=== PATIENT | male | born 1960 | race Caucasian/White ===

== ENCOUNTER → 2017-11-12 | Day surgery (SDC) | payer MEDICARE, SELFPAY ==
[~2017-11-12] MED LIST: Lidocaine 2% Viscous Solution 15 ML Cup ONE; Lidocaine 4% Top Soln 50 ML Bottle ONE; Lidocaine 4% Top Soln LTA 4 ML SYRINGE ONE; Midazolam 1 MG/ML 2 ML SDV ONE; Propofol 200 MG/20 ML SDV ONE; Sodium Chloride 0.9% 1,000 ML IV SCH; fentaNYL 100 MCG/2 ML SDV ONE
[2017-11-12 10:37] VITALS: BP 102/69
--- NOTE | 2017-11-13 09:31 | OR ---
DATE OF PROCEDURE: 11/12/2017 PROCEDURE: Bronchoscopy. INDICATIONS: A pleasant gentleman who had a CT scan, on which there was either mass versus mucus noted in the trachea. COMPLICATIONS: None. ASSISTANTS: None. FINDINGS: Mucous in trachea. 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 ANESTHESIA: MAC/local/topical. PROCEDURE IN DETAIL: The patient was placed in supine position. Anesthesia used the classic lidocaine technique to anesthetize the tract. The bronchoscope was then introduced and advanced. In the trachea, near the division between left and right, the area was encountered. This was noted to be mucus. This was completely suctioned and removed. No masses underlying and no inflammation or abnormalities. Left and right lungs; including left upper and lower; right upper, lower and middle; were also evaluated. There were no noted masses or areas of concerns. The patient had some difficulties with anesthesia; therefore, the procedure was terminated at that time. No other abnormalities were noted. The patient tolerated the procedure well. Mendez Schafer MD /[id number]
== END ==
LOC: JP.SDS 06:51
PROVIDERS: ATTEND Surgery
DX: J39.8 Other specified diseases of upper respiratory tract (principal); F32.9 Major depressive disorder, single episode, unspecified; G89.29 Other chronic pain; M54.2 Cervicalgia; Z87.19 Personal history of other diseases of the digestive system; Z88.0 Allergy status to penicillin
CPT/HCPCS: 31622; A9270; J2250; J2704; J3010; J7040; J7030

== ENCOUNTER 2020-03-20 11:12 | Emergency (ER) | payer MEDICARE ==
[2020-03-20 11:27] VITALS: BP 129/90; PULSE 74
--- NOTE | 2020-03-20 12:08 | EDM.PDOC ---
ED HPI GENERAL MEDICAL PROBLEM - General Chief Complaint: Back Pain or Injury Stated Complaint: BACK PAIN Time Seen by Provider: 03/20/20 12:08 Source of Information: Reports: Patient - History of Present Illness INITIAL COMMENTS - FREE TEXT/NARRATIVE: Patient present to [facility] for back pain concerns. Pain has been present for 12 hours. Pain is located lumbar spine and began yesterday after moving lawn on riding lawn planting material remover. Pain is associated with work or physical activity. Patient believes the pain not employer/work related. Pain is described as deep ache with slight numbness localized to lower back. Pain worsened with movement and relieved by decreased use and finding a comfortable position. Patient has noted difficulty with walking and moving secondary to pain, he was unable to get up off the riding lawn planting material remover yesterday without assistance. Patient denies loss of bowel or bladder function. Patient has had similar symptoms in the past , about 20 years. Patient does have a history of back injury 20 years ago. Patient does have a history of back surgery. Patient took 2 Vicodin/Hydrocodone around 4-5 am without any improvement of symptoms. Patient is on routine Gabapentin 300mg for bilateral lower leg neuropathy, which is unchanged at this time per patient. Patient states muscle relaxant medication given him an upset stomach and vomit. Patient was brought to ER by female significant other and his a safe ride home after visit. Back Pain Score (Numeric/FACES): 10 - Related Data Allergies Allergy/AdvReac Type Severity Reaction Status Date / Time Penicillins Allergy Rash Verified 03/20/20 11:26 Home Meds: Home Meds Hydrocodone/Acetaminophen [Hydrocodon-Acetaminophen 5-325] 1 each PO Q4HR PRN [History] traZODone HCl [Trazodone HCl] 100 mg PO DAILY 01/26/15 [History] Amitriptyline [Elavil] 1 - 2 tab PO BEDTIME PRN 11/11/17 [History] Gabapentin [Neurontin] 300 mg PO BID 11/11/17 [History] Acetaminophen/oxyCODONE [Percocet 325-5 MG] 1 - 2 each PO Q6H PRN 5 Days #6 tab 03/20/20 [Rx] Lidocaine 5% [Lidoderm 5%] 700 mg TRDERM DAILY PRN 15 Days #15 patch 03/20/20 [ Rx] Naproxen Sodium [Naproxen Sodium ER] 500 mg PO BID PRN 10 Days #30 tablet.er [Rx] Past Medical History HEENT History: Reports: Sinusitis Respiratory History: Reports: Bronchitis, Recurrent Musculoskeletal History: Reports: Arthritis, Back Pain, Chronic, Fracture Other Musculoskeletal History: significant back surgery, scars noted along left lateral chest, midline lower thoracic upper lumbar and right posterior pelvis Neurological History: Reports: None Psychiatric History: Reports: Depression Hematologic History: Reports: Blood Transfusion(s) - Infectious Disease History Infectious Disease History: Reports: Chicken Pox, Measles, Mumps - Past Surgical History HEENT Surgical History: Reports: Naso-Sinus Surgery Respiratory Surgical History: Reports: None Neurological Surgical History: Reports: None, Discectomy, Spinal Fusion, Thoracic Spine Musculoskeletal Surgical History: Reports: Shoulder Surgery Social & Family History - Tobacco Use Smoking Status *Q: Current Every Day Smoker Years of Tobacco use: 40 Packs/Tins Daily: 0.2 - Caffeine Use Caffeine Use: Reports: Coffee ED ROS GENERAL - Review of Systems Review Of Systems: Comprehensive ROS is negative, except as noted in HPI. ED EXAM,LOWER BACK PAIN/INJURY - Physical Exam Exam: See Below Exam Limited By: No Limitations General Appearance: Alert, WD/WN, Mild Distress (due to back pain, lying on his right side. Guarded gait using a cane) Eye Exam: Bilateral Eye: EOMI, Normal Inspection Ears: Hearing Grossly Normal Nose: Normal Inspection Throat/Mouth: Normal Voice, No Airway Compromise Head: Atraumatic Neck: Normal Inspection, Supple Respiratory/Chest: Lungs Clear, Normal Breath Sounds, Chest Non-Tender, Other ( scar left lateral chest along costal margin) Cardiovascular: Regular Rate, Rhythm, No Edema GI/Abdominal: Normal Bowel Sounds, Soft, Non-Tender (Male) Exam: Deferred Rectal (Males) Exam: Deferred Back Exam: CVA Tenderness (R), CVA Tenderness (L), Decreased Range of Motion ( due to pain), Vertebral Tenderness (Lumbar spine), Other (scars: thoracic spine and right posterior hip) Extremities: Normal Range of Motion, No Pedal Edema Neurological: Alert, Normal Mood/Affect, Abnormal Gait (guarded) Psychiatric: Normal Affect, Normal Mood Skin Exam: Warm, Dry, Intact, Normal Color, No Rash Course - Vital Signs Last Recorded V/S: Last Vital Signs Temp 36.1 C 03/20/20 11:25 Pulse 74 03/20/20 11:25 Resp 20 03/20/20 11:25 BP 129/90 03/20/20 11:25 Pulse Ox 98 03/20/20 11:25 - Orders/Labs/Meds Orders: Active Orders 24 hr Category Date Time Status Sodium Chloride 0.9% [Saline Flush] Med 03/20/20 12:22 Active 10 ml FLUSH ASDIRECTED PRN Saline Lock Insert [OM.PC] Routine Oth 03/20/20 12:22 Ordered Medication Orders Sodium Chloride (Saline Flush) 10 ml FLUSH ASDIRECTED PRN PRN Reason: Keep Vein Open Last Admin: 03/20/20 12:43 Dose: 10 ml Meds: Medications Generic Name Dose Route Start Last Admin Trade Name Freq PRN Reason Stop Dose Admin Sodium Chloride 10 ml 03/20/20 12:22 03/20/20 12:43 Saline Flush FLUSH 10 ml ASDIRECTED PRN Administration Keep Vein Open Discontinued Medications Generic Name Dose Route Start Last Admin Trade Name Freq PRN Reason Stop Dose Admin Diazepam 2 mg 03/20/20 12:24 03/20/20 12:43 Valium PO 03/20/20 12:25 2 mg ONETIME ONE Administration Hydromorphone HCl 0.5 mg 03/20/20 12:22 03/20/20 12:30 Dilaudid IVPUSH 03/20/20 12:23 0.5 mg ONETIME ONE Administration Ketorolac Tromethamine 15 mg 03/20/20 12:22 03/20/20 12:29 Toradol IVPUSH 03/20/20 12:23 15 mg Q6H STA Administration Lidocaine 700 mg 03/20/20 12:24 03/20/20 12:43 Lidoderm 5% TOP 03/20/20 12:25 700 mg ONETIME ONE Administration - Re-Assessments/Exams Free Text/Narrative Re-Assessment/Exam: Patient's past medical history was reviewed. I visited the patient in the room where history was collected and physical examination was performed. I discussed further plan of care which included the above workup. I reviewed the physical examination findings with the patient and offered the above interventions. 03/20/20 12:43 Disposition: HOME I reevaluated the patient and discussed the results of the above workup. I discussed follow up instructions and signs and symptoms that should prompt return to the emergency department. He was feeling improved ad able to stand more upright than time of presentation Encouraged to ice, elevate, and rest. Parent/patient seem comfortable with the evaluation, treatment and follow-up plan. I was able to answer their questions. Discussed medications given during visit and at time of discharge. Encouraged close follow up with PCP. Return to an ER if symptoms worsen or new symptoms develop. Patient/Family/Friend voiced understanding and agreed to treatment plan. 03/20/20 13:13 Departure - Departure Time of Disposition: 13:14 Disposition: Home, Self-Care 01 Condition: Good Clinical Impression: Low back pain - Discharge Information *PRESCRIPTION DRUG MONITORING PROGRAM REVIEWED*: Yes *COPY OF PRESCRIPTION DRUG MONITORING REPORT IN PATIENT SENDY: No Prescriptions: Acetaminophen/oxyCODONE [Percocet 325-5 MG] 1 - 2 each PO Q6H PRN 5 Days #6 tab PRN Reason: pain Lidocaine 5% [Lidoderm 5%] 700 mg TRDERM DAILY PRN 15 Days #15 patch PRN Reason: Pain (Moderate 4-6) Naproxen Sodium [Naproxen Sodium ER] 500 mg PO BID PRN 10 Days #30 tablet.er PRN Reason: Pain Instructions: Acute Back Pain, Adult, What You Need to Know About Chronic Back Pain, Musculoskeletal Pain, Heat Therapy, How to Use Cold Therapy Referrals: Sidra Davis PA [Primary Care Provider] - Forms: ED Department Discharge Additional Instructions: 1. LIMIT LIFTING (<10 LBS/BENDING/TWISTING) X 4 WEEKS 2. TAKE ABOVE MEDICATIONS DIRECTED UNLESS RE-CHECK IN CLINIC 3. MAX NAPROXEN 500 EVERY 12 HOURS FOR PAIN AND SWELLING WITH FOOD 4. MAX TYLENOL 4000MG PER 24 HOUR PERIOD or 5. Narcotic medications for pain EVERY 6-8 HOURS FOR SEVERE PAIN as directed. Do not take Oxycodone within 6 hours of Hydrocodone 6. Muscle relaxant declined by patient. 7. Lidoderm patch 700mg every am and off at night for localized lower back pain. 8. ICE 15-20MIN 5-7 TIMES PER DAY X 48 HOUR THEN ALTERNATE WITH HEAT 15-20 MIN 3 -4 TIMES PER DAY BASED ON COMFORT. 9. UPDATE PRIMARY CARE PROVIDER Saturday regarding ER visit and follow-up for acute exacerbation of chronic lower back pain. 10. Return for repeat evaluation if... WORSENING OR NEW SYMPTOMS, LOSS OF BLADDER/BOWL CONTROL, GROIN NUMBNESS, FEVER, TROUBLE BREATHING, NUMBNESS/TINGLING/WEAKNESS IN LOWER EXTREMITIES, ABDOMINAL PAIN, CONCERNS OR CHANGES. Sepsis Event Note - Evaluation Sepsis Screening Result: No Definite Risk - Focused Exam Vital Signs: Vital Signs Temp Pulse Resp BP Pulse Ox 03/20/20 11:25 36.1 C 74 20 129/90 98 Date Exam was Performed: 03/20/20 Time Exam was Performed: 13:13 - My Orders Last 24 Hours: My Active Orders 03/20/20 12:22 Sodium Chloride 0.9% [Saline Flush] 10 ml FLUSH ASDIRECTED PRN Saline Lock Insert [OM.PC] Routine - Assessment/Plan Last 24 Hours: My Active Orders 03/20/20 12:22 Sodium Chloride 0.9% [Saline Flush] 10 ml FLUSH ASDIRECTED PRN Saline Lock Insert [OM.PC] Routine
[2020-03-20] MEDS ORDERED: Sodium Chloride 0.9% 10 ML Syringe FLUSH PRN (12:22)
[2020-03-20] MEDS ORDERED: HYDROmorphone 0.5 MG/0.5 ML Syringe IVPUSH ONE (12:22)
[2020-03-20] MEDS ORDERED: Ketorolac 30 MG/ML SDV IVPUSH STA (12:22)
[2020-03-20] MEDS ORDERED: Lidocaine 5% 700 MG Patch TOP ONE (12:24)
[2020-03-20] MEDS ORDERED: Diazepam 2 MG Tab PO ONE (12:24)
== END 2020-03-20 13:21 | disposition home or self-care (01) ==
LOC: JP.ED 11:12
DX: M54.5 Low back pain (principal); F17.210 Nicotine dependence, cigarettes, uncomplicated; Z88.0 Allergy status to penicillin; Z79.899 Other long term (current) drug therapy
CPT/HCPCS: 96374; 96375; 99283; A9270; J1170; J1885

== ENCOUNTER 2024-02-17 10:40 | Emergency (ER) | payer MEDICARE ==
[2024-02-17 10:54] VITALS: BP 149/84; PULSE 62
[2024-02-17 12:01] LABS: ANION GAP 8.3 mmol/L (5.0-14.0); CALCIUM 9.3 mg/dL (8.5-10.1); CREATININE 1.2 mg/dL (0.8-1.3); EST CRCL DRUG DOSING (CG) 63.37 mL/min; POTASSIUM,K 4.6 mmol/L (3.6-5.2)
[2024-02-17] MEDS: Iopamidol 755 Mg/ML 100 ML Bottle IV SCH (13:28)
[2024-02-17] MEDS: Sodium Chloride 0.9% 100 ML IV SCH (13:28)
[2024-02-17] MEDS: Sodium Chloride 0.9% 10 ML Syringe FLUSH PRN (13:28)
== END 2024-02-17 18:05 | disposition home or self-care (01) ==
LOC: JP.ED 10:40
DX: I73.9 Peripheral vascular disease, unspecified (principal); F17.210 Nicotine dependence, cigarettes, uncomplicated; Z88.0 Allergy status to penicillin; Z79.899 Other long term (current) drug therapy
CPT/HCPCS: 36415; 75635; 75635-26; 80048; 83605; 85025; 99284; J3490; Q9967

== ENCOUNTER 2025-10-23 18:14 | Emergency (ER) | payer MEDICARE ==
[2025-10-23] MEDS: diphenhydrAMINE 50 MG/ML SDV IVPUSH ONE (18:55)
[2025-10-23] MEDS: Dexamethasone 4 MG/ML SDV IVPUSH ONE (19:02)
[2025-10-23 20:38] VITALS: BP 119/64; PULSE 83
== END 2025-10-23 20:50 | disposition home or self-care (01) ==
LOC: JP.ED 18:14
DX: L50.9 Urticaria, unspecified (principal); F17.200 Nicotine dependence, unspecified, uncomplicated; Z88.0 Allergy status to penicillin; Z89.512 Acquired absence of left leg below knee
CPT/HCPCS: 96374; 96375; 99282; A9270; J1100; J1200; J1308

== ENCOUNTER 2025-10-25 12:15 | Emergency (ER) | payer MEDICARE ==
[2025-10-25 13:09] VITALS: BP 114/72; PULSE 80
== END 2025-10-25 14:46 | disposition home or self-care (01) ==
LOC: JP.ED 12:15
DX: R21 Rash and other nonspecific skin eruption (principal); F17.200 Nicotine dependence, unspecified, uncomplicated; Z88.0 Allergy status to penicillin; Z79.899 Other long term (current) drug therapy; Z86.16 Personal history of COVID-19
CPT/HCPCS: 96372; 99282; A9270; J1171